=== PATIENT | female | born 1960 | race Caucasian/White ===

== ENCOUNTER 2016-11-04 12:15 | Emergency (ER) | payer OTHER ==
[~2016-11-04] VITALS: Ht 157.5 cm; Wt 86.2 kg
[~2016-11-04 12:15] MED LIST: ANT25 PO; ARM1 PO; CALC-354 PO; CHOL2000 PO; ONDA8TAB62 SL
[2016-11-04 12:22] VITALS: TEMP 36.4; Ht 157.5 cm; Wt 86.2 kg
[2016-11-04 12:29] VITALS: O2SAT 97
[2016-11-04] MEDS ORDERED: ONDANSETRON 4MG OD TAB PO STA (13:58)
[2016-11-04] MEDS ORDERED: SODIUM CHLORIDE 0.9% 1000ML 1,000 ML IV STA (14:13)
[2016-11-04] MEDS ORDERED: MECLIZINE HCL 25 MG TAB PO STA (14:24)
[2016-11-04] MEDS ORDERED: ONDANSETRON INJ 2 MG/ML 2 ML VIAL IV STA (14:24)
[2016-11-04 14:50] LABS: URINE APPEARANCE CLEAR (CLEAR); URINE BILIRUBIN NEG (NEG); URINE COLOR YELLOW; URINE EPITHELIAL CELL AUTO >30 /lpf (0-5); URINE NITRITE NEG (NEG); URINE PH 7.5 (4.5-7.5); URINE SPECIFIC GRAVITY 1.014 (1.000-1.030); UROBILINOGEN NEG (NEG)
[2016-11-04 14:52] LABS: MANUAL MICROSCOPIC REQUIRED? NO; REVIEW REQ? NO
[2016-11-04 15:38] LABS: BASO % 0.3 %; BASO ABS # 0.02 K/uL (0-0.2); COMPLETE YES; EOS % 3.8 %; IG% 0.8 %; LYMPH % 17.9 %; LYMPH ABS # 1.19 K/uL (1.2-3.4); MEAN CELL VOLUME 102.7 fL (80-100); MEAN CORPUSCULAR HEMOGLOBIN 35.7 pg (25-34); MEAN CORPUSCULAR HGB CONC 34.8 g/dl (32-36); MEAN PLATELET VOLUME 9.5 fL (7.4-10.4); MONO % 9.3 %; NEUT % 67.9 %; PLATELET COUNT 233 K/uL (130-400); RED BLOOD COUNT 4.48 M/uL (4.2-5.4); WHITE BLOOD COUNT 6.65 K/uL (4.8-10.8)
[2016-11-04 15:53] LABS: BUN/CREATININE RATIO 9.7 (10-20); CALCIUM 9.1 mg/dl (8.5-10.1); CREATININE 0.73 mg/dl (0.60-1.20); POTASSIUM 3.7 mmol/L (3.5-5.1)
[2016-11-04 16:04] LABS: THYROID STIMULATING HORMONE 18.9 uIu/ml (0.300-4.500)
[2016-11-04 16:18] VITALS: O2SAT 95
[2016-11-04] MEDS ORDERED: MECL1TAB42 PO (17:03)
[2016-11-04 17:08] VITALS: BP 138/93; PULSE 76
[2016-11-04] MEDS ORDERED: MECLIZINE HCL 25MG HOME PACK PO ONE (17:15)
--- NOTE | 2016-11-04 22:29 | EMERGENCY ROOM VISIT NOTE ---
History Report prepared by Tanna: Joshua Garcia Under the Supervision of: Dr. Tushar Armas M.D. First contact with patient: 14:09 Chief Complaint: ILLNESS Stated Complaint: FLOATY IN HEAD,SICK TO STOMACH History of Present Illness The patient is a 55 year old female who presents to the Emergency Room with complaints of constant dizziness and a "floaty" sensation starting this morning. The patient states that her discomfort/ dizziness is around an 8.5-9/ 10. The patient states that this morning she was sleeping and didn't feel well, so she got up to go to the bathroom, and she felt very dizzy like the room was spinning. The patient states that she has additionally been nauseous. The patient additionally complains of echoes in her ears, and she denies any recent cold symptoms. The patient states that she has recurring episodes of this, and it happens every couple of months. She states that she usually takes meclizine, and this helps however she currently does not have any. The patient states that she took some Zofran, and they made her feel a little bit better. The patient states that she has been having these episodes for the past three months. The patient states that she was additionally treated for breast cancer three years ago. She states that she has high hemoglobin levels, and she has a port, and they cannot find a vein. Pt denies LOC, headache, fevers, chills, diaphoresis, visual changes, neck pain, chest pain, breathing difficulties, vomiting, abdominal pain, back pain, melena, hematochezia, urinary symptoms, numbness, weakness, lymphadenopathy, rash, or other complaints. Source of History: patient Onset: this morning Position: other (global) Symptom Intensity: 8.5-9/10 Quality: other (dizziness) Timing: constant Associated Symptoms: + nausea Review of Systems See HPI for pertinent positives and negatives. A total of ten systems were reviewed and were otherwise negative. Past Medical & Surgical Medical Problems: (1) Breast cancer (2) Breast cancer (3) GI bleed (4) Hemochromatosis (5) Hemochromatosis (6) Hemorrhoid (7) Vertigo Family History FH: cancer Social History Smoking Status: Current Every Day Smoker Alcohol Use: occasionally Drug Use: none Marital Status: Housing Status: lives with family Occupation Status: unemployed Current/Historical Medications Scheduled Anastrozole (Anastrozole), 1 MG PO DAILY Calcium Carbonate-Cholecalcife (Caltrate 600+D), 2 TAB PO DAILY Cholecalciferol (Vitamin D3), 1 CAP PO DAILY Scheduled PRN Meclizine Hcl (Meclizine Hcl), 25 MG PO TID PRN for Dizziness Ondansetron Odt (Zofran Odt), 8 MG SL Q6H PRN for Nausea Allergies Coded Allergies: No Known Allergies (Unverified , 11/04/16) Physical Exam Vital Signs Date Time Temp Pulse Resp B/P Pulse Ox O2 Delivery O2 Flow Rate FiO2 11/04/16 17:08 76 18 138/93 11/04/16 17:04 68 11/04/16 16:18 66 16 155/85 95 Room Air 11/04/16 15:58 75 18 138/88 97 Room Air 11/04/16 14:20 71 20 128/82 96 80 135/86 78 152/91 11/04/16 14:03 68 20 132/80 95 Room Air 11/04/16 13:13 72 11/04/16 12:29 97 Room Air 11/04/16 12:22 36.4 79 18 164/94 97 Room Air Physical Exam GENERAL: Awake, alert, well appearing, no distress HENT: Mild cerumen impaction bilaterally Normocephalic, atraumatic. TM's normal. Oropharynx unremarkable. EYES: PERRL. EOMI. Normal conjunctiva. Sclera non-icteric. NECK: Supple. No nuchal rigidity. FROM. No JVD or bruit. RESPIRATORY: CTA CARDIAC: RRR. No murmur. ABDOMEN: Soft, non distended. No tenderness to palpation. No rebound or guarding. No masses. RECTAL: Deferred. MUSCULOSKELETAL: Unremarkable. No edema. No discoloration. Gross motor strength symmetric. NEURO: Cranial nerves 2-12 grossly intact. Normal sensorium. No sensory or motor deficits noted. Speech normal. No pronator drift. SKIN: No rash or jaundice noted. LYMPH: No adenopathy. Medical Decision & Procedures Laboratory Results 11/04/16 15:28 Red Blood Count 4.48, Mean Corpuscular Volume 102.7, Mean Corpuscular Hemoglobin 35.7, Mean Corpuscular Hemoglobin Concent 34.8, Mean Platelet Volume 9.5, Neutrophils (%) (Auto) 67.9, Lymphocytes (%) (Auto) 17.9, Monocytes (%) ( Auto) 9.3, Eosinophils (%) (Auto) 3.8, Basophils (%) (Auto) 0.3, Neutrophils # ( Auto) 4.52, Lymphocytes # (Auto) 1.19, Monocytes # (Auto) 0.62, Eosinophils # ( Auto) 0.25, Basophils # (Auto) 0.02 11/04/16 15:28 Test 11/04/16 14:00 11/04/16 15:28 Urine Color YELLOW Urine Appearance CLEAR (CLEAR) Urine pH 7.5 (4.5-7.5) Urine Specific [place] 1.014 (1.000-1.030) Urine Protein NEG (NEG) Urine Glucose (UA) NEG (NEG) Urine Ketones NEG (NEG) Urine Occult Blood NEG (NEG) Urine Nitrite NEG (NEG) Urine Bilirubin NEG (NEG) Urine Urobilinogen NEG (NEG) Urine Leukocyte Esterase TRACE (NEG) Urine WBC (Auto) 1-5 /hpf (0-5) Urine RBC (Auto) 0-4 /hpf (0-4) Urine Hyaline Casts (Auto) 1-5 /lpf (0-5) Urine Epithelial Cells (Auto) >30 /lpf (0-5) Urine Bacteria (Auto) 1+ (NEG) White Blood Count 6.65 K/uL (4.8-10.8) Red Blood Count 4.48 M/uL (4.2-5.4) Hemoglobin 16.0 g/dL (12.0-16.0) Hematocrit 46.0 % (37-47) Mean Corpuscular Volume 102.7 fL (80-100) Mean Corpuscular Hemoglobin 35.7 pg (25-34) Mean Corpuscular Hemoglobin Concent 34.8 g/dl (32-36) Platelet Count 233 K/uL (130-400) Mean Platelet Volume 9.5 fL (7.4-10.4) Neutrophils (%) (Auto) 67.9 % Lymphocytes (%) (Auto) 17.9 % Monocytes (%) (Auto) 9.3 % Eosinophils (%) (Auto) 3.8 % Basophils (%) (Auto) 0.3 % Neutrophils # (Auto) 4.52 K/uL (1.4-6.5) Lymphocytes # (Auto) 1.19 K/uL (1.2-3.4) Monocytes # (Auto) 0.62 K/uL (0.11-0.59) Eosinophils # (Auto) 0.25 K/uL (0-0.5) Basophils # (Auto) 0.02 K/uL (0-0.2) RDW Standard Deviation 51.9 fL (36.4-46.3) RDW Coefficient of Variation 13.9 % (11.5-14.5) Immature Granulocyte % (Auto) 0.8 % Immature Granulocyte # (Auto) 0.05 K/uL (0.00-0.02) Anion Gap 10.0 mmol/L (3-11) Est Creatinine Clear Calc Drug Dose 86.6 ml/min Estimated GFR () 106.0 Estimated GFR (Non- 91.4 BUN/Creatinine Ratio 9.7 (10-20) Calcium Level 9.1 mg/dl (8.5-10.1) Magnesium Level 2.0 mg/dl (1.8-2.4) Total Bilirubin 0.6 mg/dl (0.2-1) Direct Bilirubin 0.1 mg/dl (0-0.2) Aspartate Amino Transf (AST/SGOT) 27 U/L (15-37) Alanine Aminotransferase (ALT/SGPT) 27 U/L (12-78) Alkaline Phosphatase 75 U/L (45-117) Total Protein 6.5 gm/dl (6.4-8.2) Albumin 3.3 gm/dl (3.4-5.0) Lipase 138 U/L (73-393) Thyroid Stimulating Hormone (TSH) 18.900 uIu/ml (0.300-4.500) Free Thyroxine 0.71 ng/dl (0.80-1.60) Laboratory results reviewed by me Medications Administered Medications (Trade) Dose Ordered Sig/Loy Route Start Time Stop Time Status Last Admin Dose Admin Ondansetron HCl 4 mg 4 mg NOW STAT PO 11/04/16 13:58 11/04/16 13:59 DC 11/04/16 13:58 4 MG Sodium Chloride (Nss 1000ml) 1,000 ml @ 999 mls/hr Q1H1M STAT IV 11/04/16 14:13 11/04/16 15:13 DC 11/04/16 14:13 999 MLS/HR Meclizine HCl (Antivert Tab) 25 mg NOW STAT PO 11/04/16 14:24 11/04/16 14:28 DC 11/04/16 14:24 25 MG Meclizine HCl (Antivert 25MG Home Pack) 1 homepack UD ONCE PO 11/04/16 17:15 11/04/16 17:16 DC 11/04/16 17:10 1 HOMEPACK ECG Indication: other (dizziness) Rate (beats per minute): 70 Rhythm: normal sinus Findings: no acute ischemic change, no ectopy ED Course 1358: Zofran Odt 4mg PO 1409: The patient was evaluated in room B12. A complete history and physical exam was performed. 1413: Sodium Chloride 1000 ml @ 999 mls/hr IV 1424: Antivert Tab 25mg PO, Zofran Inj 4mg IV 1658: I reevaluated the patient. Discussed results and discharge instructions: She verbalized understanding and agreement. The patient is ready for discharge. 1715: Antivert 25mg 1 homepack PO Medical Decision Prior records/ancillary studies reviewed. Triage Nursing notes reviewed and agree them. The patient's history was concerning for dizziness. Differential diagnosis: Etiologies such as benign positional vertigo, tumor, infection, hypoglycemia, electrolyte abnormalities, cardiac sources, intracerebral event, toxicologic, neurologic, as well as others were entertained. Physical examination: As above. No pathologic nystagmus. ER treatment provided: IV hydration over one hour Zofran Oral meclizine On reassessment the patient felt much better and desired discharge. Diagnostics interpretation by me: ECG: Normal sinus rhythm without ischemic change or evidence of dysrhythmia. The labs revealed a normal CBC and chemistry panel. TSH was elevated. Imaging deferred. It appears the patient had an episode of benign -positional vertigo. She has a long history of this problem. She was out of her meclizine at home. I did discuss the use of a benzodiazepine but the patient declined as she is very sensitive to medications. The patient had an elevated TSH. This was found at the time discharge. I did add on a T3 and T4. The patient was informed of this thyroid abnormality and that she would need close follow-up. Her T3 is unremarkable but T4 is just under the normal limit. This will need further evaluation as an outpatient and the patient was made aware prior to discharge. By The evaluation outlined above emergent etiologies such as infection, hypoglycemia, electrolyte abnormalities, cardiac sources, intracerebral event, toxicologic, neurologic,as well as others were deemed relatively unlikely. The patient and family were informed about the findings as listed above. All questions were answered and they were pleased with the treatment. Return instructions were outlined and the patient was discharged in stable condition. Outpatient prescription management: Meclizine Referral: The patient was referred back to her primary care physician for follow-up in 2 to 3 days for a recheck of the current condition. The chart was completed utilizing [employer] Speech voice recognition software. Grammatical errors, random word insertions, pronoun errors, and incomplete sentences are an occasional consequence of this system due to software limitations, ambient noise, and hardware issues. Any formal questions or concerns about the content, text, or information contained within the body of this dictation should be directly addressed to the physician for clarification. Impression Primary Impression: Dizziness Additional Impression: possible hypothyroidism Scribe Attestation The scribe's documentation has been prepared under my direction and personally reviewed by me in its entirety. I confirm that the note above accurately reflects all work, treatment, procedures, and medical decision making performed by me. Departure Information Dispostion Home / Self-Care Prescriptions Meclizine Hcl (MECLIZINE HCL) 25 Mg Tab 25 MG PO TID Y for Dizziness, #21 TAB Prov: Tushar Armas MD 11/04/16 Referrals Veronica Mack (PCP) Forms HOME CARE DOCUMENTATION FORM, IMPORTANT VISIT INFORMATION, WORK / SCHOOL INSTRUCTIONS Patient Instructions A Signature Page, My [facility] Additional Instructions DIZZINESS INSTRUCTIONS: Meclizine 25mg: Take 1 pill every 8 hours as needed for dizziness or vertigo. Avoid alcohol, operating machinery or dangerous equipment, working on ladders or roofs, DRIVING, or situations where being under the influence may be dangerous Zofran(odansetron) tablets 4mg: Take one and allow it to dissolve in your mouth every four to six hours as needed for nausea or vomiting. Rest and drink plenty of fluids as tolerated. Continue current medications. If you have nausea or vomiting: Once your stomach is settled start with a clear liquid diet (jello, soup broth, etc.) and then advance as tolerated. You should avoid full, heavy meals for about 24 hrs from the time your symptoms resolved. Return to the ER immediately for worsening or persistent dizziness, vomiting, headache, fevers, chest pains, difficulty breathing, black or bloody stools, slurred speech, numbness, weakness, visual changes, worsening of your condition , or as needed. Follow up with your primary physician in 2-3 days for a recheck of your current condition. Thyroid studies are pending and will need to be followed up this week. Notify your PCP. Problem Qualifiers
[2017-05-25] MEDS ORDERED: ANT25 PO (13:43)
== END 2016-11-04 17:18 | disposition home or self-care (01) ==
LOC: C.EDB 12:17
DX: R42 Dizziness and giddiness (principal); Z85.3 Personal history of malignant neoplasm of breast; F17.200 Nicotine dependence, unspecified, uncomplicated

== ENCOUNTER 2017-04-20 14:06 | Emergency (ER) | payer OTHER ==
[~2017-04-20] VITALS: Ht 160 cm; Wt 78.0 kg
[~2017-04-20 14:06] MED LIST changes: -ANT25 PO; +MECL1TAB42 PO
[2017-04-20 14:12] VITALS: TEMP 36.5; Ht 160 cm; Wt 78.0 kg
[2017-04-20] MEDS ORDERED: SODIUM CHLORIDE 0.9% 1000ML 1,000 ML IV ONE (14:30)
[2017-04-20 14:56] VITALS: O2SAT 96
[2017-04-20 15:10] LABS: URINE APPEARANCE CLEAR (CLEAR); URINE BILIRUBIN NEG (NEG); URINE COLOR YELLOW; URINE NITRITE NEG (NEG); URINE SPECIFIC GRAVITY 1.009 (1.000-1.030); UROBILINOGEN NEG (NEG); ZZUR CULT IF INDIC CLEAN CATCH NO
[2017-04-20 15:12] LABS: MANUAL MICROSCOPIC REQUIRED? NO; REVIEW REQ? NO
[2017-04-20 16:04] LABS: ALB/GLOB RATIO 0.9 (0.9-2); BUN/CREATININE RATIO 10.8 (10-20); CALCIUM 9.4 mg/dl (8.5-10.1); CREATININE 0.85 mg/dl (0.60-1.20); POTASSIUM 3.8 mmol/L (3.5-5.1)
[2017-04-20 16:09] LABS: BASO % 0.3 %; BASO ABS # 0.03 K/uL (0-0.2); COMPLETE YES; EOS % 3.2 %; HEMATOCRIT 48.3 % (37-47); IG% 0.5 %; LYMPH % 16.5 %; LYMPH ABS # 1.43 K/uL (1.2-3.4); MEAN CELL VOLUME 100.4 fL (80-100); MEAN CORPUSCULAR HEMOGLOBIN 33.9 pg (25-34); MEAN CORPUSCULAR HGB CONC 33.7 g/dl (32-36); MEAN PLATELET VOLUME 9.8 fL (7.4-10.4); MONO % 8.6 %; NEUT % 70.9 %; PLATELET COUNT 278 K/uL (130-400); RED BLOOD COUNT 4.81 M/uL (4.2-5.4); WHITE BLOOD COUNT 8.65 K/uL (4.8-10.8)
[2017-04-20] MEDS ORDERED: OPTIRAY 320 IV PRN (17:00)
--- NOTE | 2017-04-20 18:30 | DIAGNOSTIC IMAGING REPORT ---
ABDOMEN AND PELVIS CT WITH IV AND ORAL CONTRAST CT DOSE: 815.54 mGy.cm HISTORY: Pain Low abd pain. Hx breast ca. Dysuria sx with normal UA TECHNIQUE: Multiaxial CT images of the abdomen and pelvis were performed following the use of intravenous and oral contrast. COMPARISON STUDY: None. FINDINGS: Lung bases are clear. Liver spleen and pancreas are unremarkable. Bowel pattern is nonobstructive. There are scattered colonic diverticuli with no evidence of diverticulitis. Kidneys enhance uniformly. There is neck to renal pelvis on the right unchanged from the prior study. Slight thickening of the mid sigmoid unchanged in the prior study. IMPRESSION: Chronic change. No acute process. Electronically signed by: Michael Juan M.D. 04/20/2017 6:28 PM Dictated Date/Time: 04/20/2017 6:24 PM
[2017-04-20] MEDS ORDERED: CIPROFLOXACIN 500 MG TAB PO STA (18:48)
[2017-04-20] MEDS ORDERED: CIPR-255 PO (18:50)
[2017-04-20 19:17] VITALS: BP 143/76; PULSE 85; O2SAT 97
--- NOTE | 2017-04-20 20:01 | EMERGENCY ROOM VISIT NOTE ---
History First contact with patient: 14:17 Chief Complaint: HYPERTENSION Stated Complaint: HYPERTENSION, URINARY SYMPTOMS History of Present Illness The patient is a 56 year old female who presents to the Emergency Room with complaints of urinary frequency and dysuria for the past 3 or 4 days. The patient has a history of hemachromatosis and has regular blood draws here at the hospital for this. She was to have a regular blood draw today, however upon presentation the patient was found to be hypertensive at roughly 170/100. She had indicated to the staff that she was not feeling well for the past several days, and she was brought to the emergency department for further management. The patient has not had reports of fever or chills. No chest pain , chest tightness, or shortness of breath. She does complain of intermittent very low abdominal/pelvic pain that is midline. She is not having any vaginal irritation, drainage, or discharge. She has a history of breast cancer 4 years ago that has been treated with chemotherapy and radiation. She is not currently undergoing any treatment for this. The patient does not have additional complaints and rates her overall discomfort a 6/10. Review of Systems More than 10 systems were reviewed and otherwise negative with the exception of history of present illness. Past Medical/Surgical History Medical Problems: (1) Breast cancer (2) Breast cancer (3) GI bleed (4) Hemochromatosis (5) Hemochromatosis (6) Hemorrhoid (7) Vertigo Family History FH: cancer Social History Smoking Status: Current Every Day Smoker Alcohol Use: occasionally Drug Use: none Marital Status: Housing Status: lives with family Occupation Status: unemployed Current/Historical Medications Scheduled Anastrozole (Anastrozole), 1 MG PO DAILY Calcium Carbonate-Cholecalcife (Caltrate 600+D), 2 TAB PO DAILY Ciprofloxacin Hcl (Cipro), 500 MG PO BID Scheduled PRN Meclizine Hcl (Meclizine Hcl), 25 MG PO TID PRN for Dizziness Ondansetron Odt (Zofran Odt), 8 MG SL Q6H PRN for Nausea Allergies Coded Allergies: No Known Allergies (Unverified , 04/20/17) Physical Exam Vital Signs Date Time Temp Pulse Resp B/P (MAP) Pulse Ox O2 Delivery O2 Flow Rate FiO2 04/20/17 18:10 89 20 145/79 97 Room Air 04/20/17 16:18 76 18 150/89 99 Room Air 04/20/17 15:11 77 04/20/17 14:56 96 Room Air 04/20/17 14:56 78 18 156/98 96 Room Air 04/20/17 14:12 36.5 18 160/102 Room Air Physical Exam VITALS: Vitals are noted on the nurse's note and reviewed by myself. Vital signs with elevated blood pressure. GENERAL: Well-developed, well-nourished, white female, who is in no acute distress and resting comfortably. Patient is cooperative with the examination. HEAD: Normocephalic atraumatic. HEART: Regular rate and rhythm without murmurs gallops or rubs. LUNGS: Clear to auscultation bilaterally without wheezes, rales or rhonchi. No retractions or accessory muscle use. ABDOMEN: Positive normal bowel sounds x 4. Soft with suprapubic tenderness. No CVA tenderness. No rebound or guarding. MUSCULOSKELETAL: No muscle atrophy, erythema, or edema noted. Full range of motion without joint tenderness in all extremities. Medical Decision & Procedures ER Provider Diagnostic Interpretation: ABDOMEN AND PELVIS CT WITH IV AND ORAL CONTRAST CT DOSE: 815.54 mGy.cm HISTORY: Pain Low abd pain. Hx breast ca. Dysuria sx with normal UA TECHNIQUE: Multiaxial CT images of the abdomen and pelvis were performed following the use of intravenous and oral contrast. COMPARISON STUDY: None. FINDINGS: Lung bases are clear. Liver spleen and pancreas are unremarkable. Bowel pattern is nonobstructive. There are scattered colonic diverticuli with no evidence of diverticulitis. Kidneys enhance uniformly. There is neck to renal pelvis on the right unchanged from the prior study. Slight thickening of the mid sigmoid unchanged in the prior study. IMPRESSION: Chronic change. No acute process. Laboratory Results 04/20/17 15:49 Red Blood Count 4.81, Mean Corpuscular Volume 100.4, Mean Corpuscular Hemoglobin 33.9, Mean Corpuscular Hemoglobin Concent 33.7, Mean Platelet Volume 9.8, Neutrophils (%) (Auto) 70.9, Lymphocytes (%) (Auto) 16.5, Monocytes (%) ( Auto) 8.6, Eosinophils (%) (Auto) 3.2, Basophils (%) (Auto) 0.3, Neutrophils # ( Auto) 6.13, Lymphocytes # (Auto) 1.43, Monocytes # (Auto) 0.74, Eosinophils # ( Auto) 0.28, Basophils # (Auto) 0.03 04/20/17 15:36 Test 04/20/17 14:51 04/20/17 15:36 04/20/17 15:49 Urine Color YELLOW Urine Appearance CLEAR (CLEAR) Urine pH 7.0 (4.5-7.5) Urine Specific [place] 1.009 (1.000-1.030) Urine Protein NEG (NEG) Urine Glucose (UA) NEG (NEG) Urine Ketones NEG (NEG) Urine Occult Blood TRACE (NEG) Urine Nitrite NEG (NEG) Urine Bilirubin NEG (NEG) Urine Urobilinogen NEG (NEG) Urine Leukocyte Esterase NEG (NEG) Urine WBC (Auto) 1-5 /hpf (0-5) Urine RBC (Auto) 0-4 /hpf (0-4) Urine Hyaline Casts (Auto) 0 /lpf (0-5) Urine Epithelial Cells (Auto) 5-10 /lpf (0-5) Urine Bacteria (Auto) NEG (NEG) Anion Gap 7.0 mmol/L (3-11) Est Creatinine Clear Calc Drug Dose 71.3 ml/min Estimated GFR () 87.5 Estimated GFR (Non- 75.5 BUN/Creatinine Ratio 10.8 (10-20) Calcium Level 9.4 mg/dl (8.5-10.1) Total Bilirubin 0.6 mg/dl (0.2-1) Aspartate Amino Transf (AST/SGOT) 21 U/L (15-37) Alanine Aminotransferase (ALT/SGPT) 29 U/L (12-78) Alkaline Phosphatase 84 U/L (45-117) Troponin I < 0.015 ng/ml (0-0.045) Total Protein 7.3 gm/dl (6.4-8.2) Albumin 3.5 gm/dl (3.4-5.0) Globulin 3.8 gm/dl (2.5-4.0) Albumin/Globulin Ratio 0.9 (0.9-2) White Blood Count 8.65 K/uL (4.8-10.8) Red Blood Count 4.81 M/uL (4.2-5.4) Hemoglobin 16.3 g/dL (12.0-16.0) Hematocrit 48.3 % (37-47) Mean Corpuscular Volume 100.4 fL (80-100) Mean Corpuscular Hemoglobin 33.9 pg (25-34) Mean Corpuscular Hemoglobin Concent 33.7 g/dl (32-36) Platelet Count 278 K/uL (130-400) Mean Platelet Volume 9.8 fL (7.4-10.4) Neutrophils (%) (Auto) 70.9 % Lymphocytes (%) (Auto) 16.5 % Monocytes (%) (Auto) 8.6 % Eosinophils (%) (Auto) 3.2 % Basophils (%) (Auto) 0.3 % Neutrophils # (Auto) 6.13 K/uL (1.4-6.5) Lymphocytes # (Auto) 1.43 K/uL (1.2-3.4) Monocytes # (Auto) 0.74 K/uL (0.11-0.59) Eosinophils # (Auto) 0.28 K/uL (0-0.5) Basophils # (Auto) 0.03 K/uL (0-0.2) RDW Standard Deviation 48.7 fL (36.4-46.3) RDW Coefficient of Variation 13.2 % (11.5-14.5) Immature Granulocyte % (Auto) 0.5 % Immature Granulocyte # (Auto) 0.04 K/uL (0.00-0.02) Medications Administered Medications (Trade) Dose Ordered Sig/Loy Route Start Time Stop Time Status Last Admin Dose Admin Sodium Chloride 1,000 ml @ 999 mls/hr Q1H1M ONCE IV 04/20/17 14:30 04/20/17 15:30 DC 04/20/17 14:30 999 MLS/HR ED Course Physical exam and history were performed. Nursing notes and EMR were reviewed. Patient appears to have dysuria symptoms with very low abdominal pain for the past few days. She was also found to be hypertensive earlier at the outpatient lab. On exam the patient does not appear toxic. IV access was established and labs were obtained. Patient was hydrated and medicated as above. She was able to give a urine sample, which did not show obvious urinary tract infection symptoms. Because she does have discomfort in the lower abdomen and history of cancer I did elect to perform a CT scan with IV and oral contrast. The patient's blood work is as above and was reviewed. She does not have a significantly elevated white blood cell count, gross anemia, bandemia, or significant electrolyte imbalance. Her CT scan does not show evidence of acute findings. Overall the patient remained in stable condition throughout her emergency department stay. Her blood pressure improved, but did not completely return to a more normal level. She will need to follow-up with her primary care physician for this. The patient will be given a course of Cipro as clinically she is having UTI symptoms, and her culture is pending. I did recommend the patient have close follow-up by her primary care physician. She was otherwise invited back to the ER with any new, worsening, or concerning symptoms. The chart was completed utilizing [employer] Speech Voice Recognition Software. Grammatical errors, random word insertions, pronoun errors, and incomplete sentences are an occasional consequence of this system due to software limitations, ambient noise, and hardware issues. Any formal questions or concerns about the content, text, or information contained within the body of this dictation should be directly addressed to the provider for clarification. . Medical Decision Differential diagnosis: Etiologies such as appendicitis, diverticulitis, PUD, biliary pathology, UTI, pancreatitis, obstruction, mesenteric ischemia, aortic pathology, infections, inflammatory bowel disease, renal colic, as well as others were entertained. Impression Primary Impression: Symptoms involving urinary system Additional Impressions: Elevated blood pressure reading Suprapubic abdominal pain Departure Information Dispostion Home / Self-Care Condition GOOD Prescriptions Ciprofloxacin Hcl (CIPRO) 500 Mg Tab 500 MG PO BID for 10 Days, #20 TAB Prov: John Shaver PA-C 04/20/17 Forms HOME CARE DOCUMENTATION FORM, IMPORTANT VISIT INFORMATION Patient Instructions My [facility] Additional Instructions You were seen and evaluated today on an emergency basis only. This is not a substitute for, or an effort to provide, complete comprehensive medical care. It is not possible to recognize and treat all injuries or illnesses in a single emergency department visit. For this reason it is recommended that you followup with your primary care physician next week for ongoing care and evaluation. Ciprofloxacin(Cipro) 500mg: Take one pill twice daily for 10 days for your infection. All antibiotics can cause diarrhea. If this occurs and you feel worse or it does not resolve in 1-2 days follow up with your doctor or return to the Emergency Department as this could be signs of serious underlying problems. If you experience any pain in your tendons or any tendon injury return to the ER for re-evaluation. Any medication can cause an allergic reaction, stop the pills immediately and return to the ER for rash, hives, breathing difficulties, or swelling. You are welcome to return to the emergency department anytime with new, worsening, or concerning symptoms. Problem Qualifiers
[2017-05-25] MEDS ORDERED: ANT25 PO (13:43)
== END 2017-04-20 19:18 | disposition home or self-care (01) ==
LOC: C.EDB 14:07 → C.EDC 19:18
DX: R30.0 Dysuria (principal); I10 Essential (primary) hypertension; R10.30 Lower abdominal pain, unspecified; Z85.3 Personal history of malignant neoplasm of breast

== ENCOUNTER → 2017-08-04 | Outpatient (CLI) | payer OTHER ==
[~2017-08-04] MED LIST changes: +ANT25 PO; -CHOL2000 PO; -MECL1TAB42 PO
[2017-08-04 14:23] VITALS: BP 139/86; PULSE 80; TEMP 36.6; O2SAT 98
--- NOTE | 2017-08-04 16:56 | Radiation Oncology Follow-Up ---
Radiation Oncology Follow-Up Date of Visit Aug 04, 2017. Reason For Visit Annual follow-up Radiation Completion Date 06/13/14 Diagnosis (1) Breast cancer Status: Resolved Onset Date: 06/28/2013 Histology Subtype: adenocarcinoma Stage: lll Permanent Comment: Self detected right breast mass Status post ultrasound and mammogram 06/16/2013 Status post right breast biopsy and punch biopsy of the skin 06/28/2013 revealing adenocarcinoma Neoadjuvant chemotherapy 4 cycles of Adriamycin and Cytoxan followed by 4 cycles of Taxol dose dense therapy Status post bilateral mastectomies and right axillary dissection Stage ypT4 ypN2a M0 Status post completion of radiation therapy 06/13/2014 received 6120 cGy Last Edited By: Jana Schmidt on Jan 29, 2016 16:18 Interim History She's been doing well over this past year. She denies any changes of the right chest wall. She noted no masses or tenderness and no change of the axilla. She 's had no swelling of her arm. Today she had a phlebotomy for her polycythemia. She continues on Arimidex. She denies side effects. She does have a port. We reviewed the frequency in need of flushing of the port. They have been using her arm for the phlebotomies. She is going to check on her schedule to make sure she has a port flush scheduled. She had some issues with vertigo over this past year. These resolved and have not recurred. Allergies Coded Allergies: No Known Allergies (Unverified , 06/15/17) Home Medications Scheduled Anastrozole (Anastrozole), 1 MG PO DAILY Calcium Carbonate-Cholecalcife (Caltrate 600+D), 2 TAB PO DAILY Scheduled PRN Meclizine HCl (Meclizine HCl), 1 TAB PO DAILY PRN for Dizziness or Vertigo Ondansetron Odt (Zofran Odt), 8 MG SL Q6H PRN for Nausea Review of Systems Gastrointestinal: Symptoms: Nausea GI Comments: Nausea associated with episodes of vertigo which she's known to have; Oral: Symptoms: No Problems Respiratory: Symptoms: WNL Urinary: Symptoms: WNL Skin: Symptoms: No Problems Breast: Right Upper Arm Measurement: 35.0 Right Mid Arm Measurement: 26.0 Right Wrist Measurement: 18.5 Left Upper Arm Measurement: 36.5 Left Mid Arm Measurement: 27.5 Left Wrist Measurement: 17.8 Arm Dominence: Left Physical Exam Vital Signs Date Time Temp Pulse Resp B/P (MAP) Pulse Ox O2 Delivery O2 Flow Rate FiO2 08/04/17 14:23 36.6 80 16 139/86 98 Fatigue: None General Appearance: no apparent distress Eyes: normal inspection, EOMI ENT: normal ENT inspection, hearing grossly normal, TMs normal (mild cerumen.) Neck: no adenopathy, thyroid normal Respiratory/Chest: lungs clear, no respiratory distress, no accessory muscle use Breast: Status post mastectomies. The chest wall reveals no masses or tenderness no change in the axilla. She has an area of fibrous change in the area of the right pectoralis minor. This is improved compared to last year. Using the Vilas score cosmesis she has a good outcome. She continues to have some there is slight hyperpigmentation of the right anterior chest wall. Left chest wall showed no masses or tenderness no axillary adenopathy. Cardiovascular: regular rate, rhythm, no gallop, no murmur Abdomen: non tender, soft Extremities: no pedal edema Neurologic/Psychiatric: no motor/sensory deficits, alert, normal mood/affect Skin: warm/dry Laboratory Studies Test 05/18/17 12:01 06/15/17 14:26 07/13/17 13:53 08/04/17 13:01 White Blood Count 7.56 K/uL (4.8-10.8) Red Blood Count 4.88 M/uL (4.2-5.4) Hemoglobin 16.1 g/dL (12.0-16.0) 15.7 g/dL (12.0-16.0) 15.3 g/dL (12.0-16.0) Hematocrit 49.0 % (37-47) 46.2 % (37-47) 45.1 % (37-47) Mean Corpuscular Volume 100.4 fL (80-100) Mean Corpuscular Hemoglobin 33.0 pg (25-34) Mean Corpuscular Hemoglobin Concent 32.9 g/dl (32-36) Platelet Count 233 K/uL (130-400) Mean Platelet Volume 10.4 fL (7.4-10.4) Neutrophils (%) (Auto) 66.0 % Lymphocytes (%) (Auto) 18.5 % Monocytes (%) (Auto) 9.5 % Eosinophils (%) (Auto) 4.0 % Basophils (%) (Auto) 0.5 % Neutrophils # (Auto) 4.99 K/uL (1.4-6.5) Lymphocytes # (Auto) 1.40 K/uL (1.2-3.4) Monocytes # (Auto) 0.72 K/uL (0.11-0.59) Eosinophils # (Auto) 0.30 K/uL (0-0.5) Basophils # (Auto) 0.04 K/uL (0-0.2) RDW Standard Deviation 49.1 fL (36.4-46.3) RDW Coefficient of Variation 13.3 % (11.5-14.5) Immature Granulocyte % (Auto) 1.5 % Immature Granulocyte # (Auto) 0.11 K/uL (0.00-0.02) Sodium Level 138 mmol/L (136-145) Potassium Level 3.9 mmol/L (3.5-5.1) Chloride Level 105 mmol/L (98-107) Carbon Dioxide Level 27 mmol/L (21-32) Anion Gap 6.0 mmol/L (3-11) Blood Urea Nitrogen 10 mg/dl (7-18) Creatinine 1.00 mg/dl (0.60-1.20) Est Creatinine Clear Calc Drug Dose 61.0 ml/min Estimated GFR () 71.9 Estimated GFR (Non- 62.1 BUN/Creatinine Ratio 10.4 (10-20) Random Glucose 107 mg/dl (70-99) Calcium Level 9.2 mg/dl (8.5-10.1) Total Bilirubin 0.4 mg/dl (0.2-1) Aspartate Amino Transferase (AST) 19 U/L (15-37) Alanine Aminotransferase (ALT) 28 U/L (12-78) Alkaline Phosphatase 89 U/L (45-117) Total Protein 6.9 gm/dl (6.4-8.2) Albumin 3.3 gm/dl (3.4-5.0) Globulin 3.6 gm/dl (2.5-4.0) Albumin/Globulin Ratio 0.9 (0.9-2) Chemistry Specimen Hemolysis Assessment & Plan Plan: Continue regular follow-up with medical oncology and her primary care physician. She continues on Arimidex. We asked her to return to our office in 1 year. She may, she has any questions or concerns in the interim. Today we once again discussed smoke cessation. She was given information about the 1 800 quit line. I offered to refer her to a smoking cessation program through the hospital. She declined to be referred. Total Time In Follow-Up I spent 20 minutes speaking to the patient performing examination. I spent 15 minutes reviewing information in completing this note. Copy To [place] M.D.; Eben Subramanian D.O.; Nikko Tam M.D. Problem Qualifiers (1) Breast cancer: Breast location: central portion of breast Estrogen receptor status: positive Patient sex: female Laterality: right Qualified Codes: C50.111 - Malignant neoplasm of central portion of right female breast; Z17.0 - Estrogen receptor positive status [ER+]
== END | disposition home or self-care (01) ==
LOC: C.ONC 12:27
PROVIDERS: ATTEND Physician Assistant Medical
DX: Z08 Encounter for follow-up examination after completed treatment for malignant neoplasm (principal); Z92.3 Personal history of irradiation; Z85.3 Personal history of malignant neoplasm of breast

== ENCOUNTER 2021-05-07 15:28 | Inpatient (IN) ==
--- NOTE | 2021-05-07 17:01 | Emergency Department Note ---
Impression & Plan Elevated bilirubin, Metastatic breast cancer, Transaminitis, Leukocytosis ED Provider Note NAME: LUCA TRIVEDI AGE: 60 SEX: F : 1960 ARRIVES VIA: Walk-In INFORMANT: Patient ED PROVIDER(S): Paramjit Trujillo DO CHIEF COMPLAINT: elevated lfts and bili HPI: Patient is a 60-year-old female with a past medical history of metastatic breast cancer that presents to the ER for increased elevation in LFTs and bilirubin. Patient denies any new headaches or change in vision. No chest pain or shortness of breath. No nausea, vomiting or diarrhea. She does have new lower abdominal pain which has been present for quite some time. She describes it as a crampy pain. Generally goes away with Tylenol. 0 out of 10 pain currently. She follow-up with her PCP and was referred in after blood work performed earlier today which showed an elevation in bilirubin and LFTs. ROS: See above HPI for pertinent positives & negatives. A total of 10 systems reviewed and were otherwise negative. PAST MEDICAL HISTORY:See Below PAST SURGICAL HISTORY:See Below FAMILY HISTORY:See Below SOCIAL HISTORY:See Below HOME MEDICATIONS:See Below ALLERGIES:See Below VITALS:See Below PHYSICAL EXAMINATION: GENERAL: Sitting up in bed, alert, well appearing, well nourished, no distress, non-toxic EYE EXAM: Scleral icterus OROPHARYNX: no exudate, no erythema, lips, buccal mucosa, and tongue normal and mucous membranes are moist NECK: supple, no nuchal rigidity, no adenopathy, non-tender LUNGS: Clear to auscultation. Normal chest wall mechanics HEART: no murmurs, S1 normal and S2 normal ABDOMEN: abdomen soft, non-tender, normo-active bowel sounds, no masses, no rebound or guarding. BACK: Back is symmetrical on inspection and there is no deformity, no midline tenderness, no CVA tenderness. SKIN: no rashes and no bruising UPPER EXTREMITIES: upper extremities are grossly normal. LOWER EXTREMITIES: No pitting edema. NEURO EXAM: Normal sensorium, cranial nerves II-XII grossly intact, normal speech, no gross weakness of arms, no gross weakness of legs. MEDICAL DECISION MAKING: Patient is a 60-year-old female who presents the ER for abnormal blood work. IV was established with obtained. Labs show mild leukocytosis of 13,000. No significant anemia. BMP with mild hypokalemia 3.4. Chloride slightly elevated at 108. T bili elevated at 8.8. AST elevated 2-3. ALT was normal. Alk phos at 574. Lipase was normal. CT abdomen pelvis shows no gross obstruction process in the CBD. Multiple lesions in the liver. Discussed with gastr oenterology who recommended antibiotics and admission with medicine due to the tachycardia, white count and elevated bilirubin. Discussed with Dr. Pool for further evaluation. Triage Nursing notes reviewed. Limited review of prior medical records performed Vital Signs: reviewed and remarkable for no significant abnormalities Differential diagnosis: Differential diagnoses includes but is not limited to gastritis, peptic ulcer disease, GERD, gallbladder disease, pancreatitis, small bowel obstruction, acute coronary syndrome, pericarditis, ischemic bowel, irritable bowel disease, irritable bowel syndrome, appendicitis, diverticulitis, malignancy, hernia, urinary tract infection, torsion, perforation, trauma, infectious. ER treatment provided: See below Diagnostics interpreted by me: Cardiac Monitoring: An order was placed for continuous cardiac monitoring. The monitor shows a rate of 82 with sinus rhythm. Laboratory studies: As stated above and show below. Imaging studies: CT abdomen pelvis as discussed above Consultation(s): Discussed with Dr. Burton as stated above Discussed with the hospitalist as stated above Critical Care: None Past Med/Surg History Medical History (Updated 05/07/21 @ 20:21 by Paramjit Trujillo DO) Abdominal pain Breast carcinoma Central venous catheter in place Dizziness GI bleed Hemorrhoids History of hemochromatosis Liver metastasis Nausea Orthostatic hypotension Vertigo Surgical History History of mastectomy, total Family History (Updated 05/02/21 @ 08:25 by Avis Rodriguez, VALORIE) Mother , 46yo Myocardial infarction Father , in his 50s Accident Brother Accident Brother No problems noted. Brother No problems noted. Brother No problems noted. Brother No problems noted. Brother No problems noted. Brother No problems noted. Sister No problems noted. Sister No problems noted. Sister Crohn's disease Son No problems noted. Daughter No problems noted. 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 Beliefs That Will Affect Care: None marital status: Current Living Situation: Family current occupational status: previously employed Feels Safe at Home: Yes caffeine: No during the past year weight has: remained stable Allergies Allergies Allergy/AdvReac Type Severity Reaction Status Date / Time No Known Allergies Allergy Verified 05/07/21 17:52 Home Meds Home Medications Medication Instructions Recorded Confirmed ondansetron HCl 8 mg tablet 8 mg PO Q8 PRN 09/16/19 05/07/21 (Zofran) levothyroxine 100 mcg capsule 100 mcg PO .QOD cap 05/02/21 05/07/21 levothyroxine 75 mcg capsule 75 mcg PO .QOD cap 05/02/21 05/07/21 Results & Data (ED) Vital Signs Vital Signs - 24 hr 05/07/21 15:34 05/07/21 17:15 05/07/21 18:43 Temperature 36.4 C L Temperature Source Temporal Artery Scan Pulse Rate 113 H 96 H 91 H Pulse Rate [Apical] 100 H Pulse Rate from SpO2 Sensor 96 H 92 H Pulse Rhythm Respiratory Rate 18 23 19 Blood Pressure 136/82 140/93 123/62 Blood Pressure [Left Arm] 140/93 Blood Pressure Mean 100 108 82 Blood Pressure Mean [Left Arm] 108 Pulse Oximetry 97 97 98 Oxygen Delivery Method Room Air Sepsis Recent Fever Within 48 Hours No Sepsis New/Unexplained Change in Mental Status No Sepsis Action Taken by Nursing No Action Required 05/07/21 18:54 05/07/21 19:40 Temperature Temperature Source Pulse Rate 79 Pulse Rate [Apical] 97 H Pulse Rate from SpO2 Sensor Pulse Rhythm Regular Respiratory Rate 18 15 Blood Pressure Blood Pressure [Left Arm] 123/62 Blood Pressure Mean Blood Pressure Mean [Left Arm] 82 Pulse Oximetry 95 95 Oxygen Delivery Method Room Air Room Air Sepsis Recent Fever Within 48 Hours Sepsis New/Unexplained Change in Mental Status Sepsis Action Taken by Nursing Laboratory Data Result diagrams: 05/07/21 17:34 05/07/21 17:34 Lab Results 05/07/21 05/07/21 05/07/21 Range/Units 17:34 17:34 17:34 WBC 13.26 H (4.8-10.8) K/uL RBC 4.33 (4.2-5.4) M/uL Hgb 14.6 (12.0-16.0) g/dL Hct 43.3 (37-47) % MCV 100.0 (80-100) fL MCH 33.7 (25-34) pg MCHC 33.7 (32-36) g/dL RDW Std Deviation 63.8 H (36.4-46.3) fL RDW Coeff of Rufina 17.4 H (11.5-14.5) % Plt Count 268 (130-400) K/uL MPV 11.5 H (7.4-10.4) fL Immature Gran % (Auto) 0.7 % Neut % (Auto) 72.8 % Lymph % (Auto) 11.5 % Hamilton % (Auto) 11.5 % Eos % (Auto) 3.0 % Baso % (Auto) 0.5 % Neut # (Auto) 9.66 H (1.4-6.5) K/uL Lymph # (Auto) 1.52 (1.2-3.4) K/uL Hamilton # (Auto) 1.53 H (0.11-0.59) K/uL Eos # (Auto) 0.40 (0-0.5) K/uL Baso # (Auto) 0.06 (0-0.2) K/uL Immature Gran # (Auto) 0.09 H (0.00-0.02) K/uL PT 12.1 H (9.0-12.0) Seconds INR 1.2 H (0.9-1.1) Sodium 139 (136-145) mmol/L Potassium 3.4 L (3.5-5.1) mmol/L Chloride 108 H (98-107) mmol/L Carbon Dioxide 22 (21-32) mmol/L Anion Gap 9.0 (3-11) BUN 10 (7-18) mg/dl Creatinine 0.69 (0.6-1.2) mg/dl Est Cr Clr Drug Dosing 91.0 ml/min Est GFR ( Amer) 108.1 ml/min Est GFR (Non-Af Amer) 93.3 ml/min BUN/Creatinine Ratio 14.7 (10-20) Glucose 82 (70-99) mg/dl Calcium 8.7 (8.5-10.1) mg/dl Total Bilirubin 8.8 H (0.2-1) mg/dl AST 223 H (15-37) U/L ALT 50 (12-78) U/L Alkaline Phosphatase 574 H (45-117) U/L Total Protein 6.4 (6.4-8.2) gm/dl Albumin 2.5 L (3.4-5.0) gm/dl Globulin 3.9 (2.5-4.0) gm/dl Albumin/Globulin Ratio 0.6 L (0.9-2) Lipase 86 (73-393) U/L Administered Medications Piperacillin Sod/Tazobactam Sod (Zosyn) 4.5 gm in 120 mls @ 240 mls/hr IV NOW ONE Stop: 05/07/21 20:19 Last Admin: 05/07/21 20:03 Dose: 240 mls/hr Documented by: [id number] Discontinued Medications Acetaminophen (Acetaminophen 325 Mg Tab) 650 mg PO NOW STA Stop: 05/07/21 20:04 Last Admin: 05/07/21 20:16 Dose: 650 mg Documented by: [id number] Ioversol (Optiray 320 100ml) 91 ml IV ONCE ONE Stop: 05/07/21 18:05 Last Admin: 05/07/21 18:05 Dose: 91 ml Documented by: [id number] Imaging Data Radiologist's Impression: Abdomen/Pelvis CT 05/07/21 18:[address] WITHOUT CONTRAST CT DOSE: 964.30 mGy.cm HISTORY: Acute lower abdominal pain with elevated LFTs and elevated bilirubin. History of metastatic breast cancer abd pain eugenio bili and lfts TECHNIQUE: Multiaxial CT images of the abdomen and pelvis were performed without contrast. A dose lowering technique was utilized adhering to the principles of ALARA. COMPARISON STUDY: CT abdomen and pelvis 03/20/2021, abdominal ultrasound 04/25/2021. FINDINGS: Coronary artery calcifications. The imaged inferior cardiac chambers are unremarkable. Trace right pleural effusion. No pneumatosis or pneumoperitoneum. The unenhanced spleen measures the upper limits of normal in size. Mildly atrophic pancreas. Unremarkable adrenal glands. Mild gallbladder distention. No biliary ductal dilation. Cirrhotic morphology of the liver. Evaluation of the previously described hepatic metastasis is limited without use of IV contrast. Heterogeneity of the parenchyma with scattered ill-defined lesions. Small volume of abdominopelvic ascites has increased from the February study. No urolith or obstructive uropathy. Partial urinary bladder distention. Unremarkable uterus. No abdominal aortic aneurysm. No new adenopathy. Mild nonspecific distal esophageal wall thickening. No bowel obstruction or bowel wall thickening. Clustered metallic density foci within the abdominal left lower quadrant are unchanged. Mild colonic diverticulosis. The visualized appendix is noninflamed. Scattered faint sclerotic changes suggestive of metastatic disease redemonstrated throughout the skeletal structures. No significant change from comparison. IMPRESSION: 1. Innumerable hepatic metastasis are better characterized on comparison contrasted enhanced exam. Findings suggestive of pseudocirrhosis redemonstrated. 2. Small volume of abdominopelvic ascites is new from the 03/20/2021 exam. 3. Sclerotic skeletal metastatic disease redemonstrated. 4. No bowel obstruction or bowel wall thickening. 5. Colonic diverticulosis. 6. Trace right pleural effusion. ACT 112: Negative or not required by law. The above report was generated using voice recognition software. It may contain grammatical, syntax or spelling errors. Electronically signed by: Dmitry Henderson M.D. 05/07/2021 7:32 PM Discharge Plan Visit Data Chief Complaint: Abnormal Labs/Diagnostic Testing Stated Complaint: ABNORMAL LAB RESULTS ED Provider: Paramjit Trujillo Discharge Problem: Elevated bilirubin, Metastatic breast cancer, Transaminitis, Leukocytosis Patient Disposition: Admitted As Inpatient Forms Stand Alone Forms: [facility] [place] [employer] Prescriptions Prescriptions: No Action levothyroxine 75 mcg capsule 75 mcg PO .QOD RF: 0 levothyroxine 100 mcg capsule 100 mcg PO .QOD RF: 0 ondansetron HCl [Zofran] 8 mg tablet 8 mg PO Q8 PRN (Reason: Nausea) RF: 0 Referrals Referrals: Veronica Mack CRNP [Primary Care Provider] -
[2021-05-07 17:49] LABS: Basophils # (auto) 0.06 K/uL (0-0.2); Basophils % (auto) 0.5 %; Hematocrit (blood only) 43.3 % (37-47); Hemoglobin 14.6 g/dL (12.0-16.0); Immature Granulocytes # (auto) 0.09 K/uL (0.00-0.02); Immature Granulocytes % (auto) 0.7 %; Lymphocytes # (auto) 1.52 K/uL (1.2-3.4); Lymphocytes % (auto) 11.5 %; Mean Corpuscular Hemoglobin 33.7 pg (25-34); Mean Corpuscular Hgb Conc 33.7 g/dL (32-36); Mean Platelet Volume 11.5 fL (7.4-10.4); Monocytes # (auto) 1.53 K/uL (0.11-0.59); Monocytes % (auto) 11.5 %; Neutrophils # (auto) 9.66 K/uL (1.4-6.5); Neutrophils % (auto) 72.8 %; Platelet Count 268 K/uL (130-400); RDW Coefficient of Variation 17.4 % (11.5-14.5); RDW Standard Deviation 63.8 fL (36.4-46.3); Red Blood Count 4.33 M/uL (4.2-5.4); White Blood Count 13.26 K/uL (4.8-10.8)
[2021-05-07] MEDS ORDERED: OPTIRAY 320 100ml IV ONE (18:04)
[2021-05-07 18:13] LABS: INR 1.2 (0.9-1.1); Prothrombin Time 12.1 Seconds (9.0-12.0)
[2021-05-07 18:22] LABS: Albumin Globulin Ratio 0.6 (0.9-2); Albumin Level 2.5 gm/dl (3.4-5.0); BUN Creatinine Ratio 14.7 (10-20); Bilirubin,Total 8.8 mg/dl (0.2-1); Calcium 8.7 mg/dl (8.5-10.1); Est GFR (African American) 108.1 ml/min; Est GFR (Non-African American) 93.3 ml/min; Globulin 3.9 gm/dl (2.5-4.0); Potassium 3.4 mmol/L (3.5-5.1); Total Protein 6.4 gm/dl (6.4-8.2)
--- NOTE | 2021-05-07 19:33 | CT Scan Report ---
ABDOMEN AND PELVIS CT WITHOUT CONTRAST CT DOSE: 964.30 mGy.cm HISTORY: Acute lower abdominal pain with elevated LFTs and elevated bilirubin. History of metastatic breast cancer abd pain eugenio bili and lfts TECHNIQUE: Multiaxial CT images of the abdomen and pelvis were performed without contrast. A dose lo wering technique was utilized adhering to the principles of ALARA. COMPARISON STUDY: CT abdomen and pelvis 03/20/2021, abdominal ultrasound 04/25/2021. FINDINGS: Coronary artery calcifications. The imaged inferior cardiac chambers are unremarkable. Trac e right pleural effusion. No pneumatosis or pneumoperitoneum. The unenhanced spleen measures the uppe r limits of normal in size. Mildly atrophic pancreas. Unremarkable adrenal glands. Mild gallbladder d istention. No biliary ductal dilation. Cirrhotic morphology of the liver. Evaluation of the previousl y described hepatic metastasis is limited without use of IV contrast. Heterogeneity of the parenchyma with scattered ill-defined lesions. Small volume of abdominopelvic ascites has increased from the Ma y study. No urolith or obstructive uropathy. Partial urinary bladder distention. Unremarkable uterus. No abdom inal aortic aneurysm. No new adenopathy. Mild nonspecific distal esophageal wall thickening. No bowel obstruction or bowel wall thickening. Clustered metallic density foci within the abdominal left lowe r quadrant are unchanged. Mild colonic diverticulosis. The visualized appendix is noninflamed. Scatte red faint sclerotic changes suggestive of metastatic disease redemonstrated throughout the skeletal s tructures. No significant change from comparison. IMPRESSION: 1. Innumerable hepatic metastasis are better characterized on comparison contrasted enhanced exam. Fi ndings suggestive of pseudocirrhosis redemonstrated. 2. Small volume of abdominopelvic ascites is new from the 03/20/2021 exam. 3. Sclerotic skeletal metastatic disease redemonstrated. 4. No bowel obstruction or bowel wall thickening. 5. Colonic diverticulosis. 6. Trace right pleural effusion. ACT 112: Negative or not required by law. The above report was generated using voice recognition software. It may contain grammatical, syntax o r spelling errors. Electronically signed by: Dmitry Henderson M.D. 05/07/2021 7:32 PM
[2021-05-07] MEDS ORDERED: PIPERACILL/TAZOBAC CONSULT ACTIVE PRN (19:50)
[2021-05-07] MEDS ORDERED: PIPERACILLIN/TAZOBACTAM 4.5 GM/120 ML BAG IV ONE (19:50)
[2021-05-07] MEDS ORDERED: ACETAMINOPHEN 325 MG TAB PO STA (20:03)
--- NOTE | 2021-05-07 22:02 | History & Physical Report ---
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 CT scan and MRI of liver and abdomen did not show obstruction. Patient's laboratory picture has in fact worsened. Consult her oncologist Dr. Barros. Consult gastroenterology Dr. Burton History of Present Illness Chief Complaint: The patient presents to the emergency department after being referred by her PCPs office for abnormal blood work performed earlier in the day today. Primary Care Provider: JUSTIN Santoyo The patient is a 60-year-old female with a past medical history including metastatic breast cancer and hypothyroidism who presents to the emergency department as a referral from her PCPs office due to abnormal lab work. Laboratories performed in the ED include the following significant abnormalities: Potassium 3.4, total bilirubin 8.8, AST 223, alk phos 574 and albumin 2.[address] of abdomen and pelvis which showed metastatic disease to the liver and pseudocirrhosis appearance, along with sclerotic skeletal metastases. The patient herself reports no difference in symptoms today. Allergies Allergy/AdvReac Type Severity Reaction Status Date / Time No Known Allergies Allergy Verified 05/07/21 17:52 Home Medications Medication Instructions Recorded Confirmed Type ondansetron HCl 8 mg tablet 8 mg PO Q8 PRN 09/16/19 05/07/21 History (Zofran) levothyroxine 100 mcg capsule 100 mcg PO .QOD cap 05/02/21 05/07/21 History levothyroxine 75 mcg capsule 75 mcg PO .QOD cap 05/02/21 05/07/21 History Past Med/Surg History Medical History (Updated 05/08/21 @ 04:28 by Fermin Ray MD) Abdominal pain Breast carcinoma Central venous catheter in place Dizziness GI bleed Hemorrhoids History of hemochromatosis Hypothyroidism (acquired) Liver metastasis Nausea Orthostatic hypotension Vertigo Surgical History History of mastectomy, total Family History (Updated 05/02/21 @ 08:25 by Avis Rodriguez RN) Mother , 46yo Myocardial infarction Father , in his 50s Accident Brother Accident Brother No problems noted. Brother No problems noted. Brother No problems noted. Brother No problems noted. Brother No problems noted. Brother No problems noted. Sister No problems noted. Sister No problems noted. Sister Crohn's disease Son No problems noted. Daughter No problems noted. Other Cancer Social History (Updated 05/02/21 @ 08:27 by Avis Rodriguez RN) Smoking Status: Current every day smoker Tobacco Type: Cigarettes Cigarettes Per Day: 3-5; Second Hand Exposure: No; Do You Dip or Chew Tobacco: No; Hx Alcohol Use: No Hx Substance Use: No Preferred Language: Syrian Communication Ability: Effective Visual Impairment: No Limitations Hearing Ability: Normal Digitizer Required: No Beliefs That Will Affect Care: None marital status: Current Living Situation: Spouse current occupational status: previously employed Other Information That Helps Us Care for You: No Feels Safe at Home: Yes Safety Concerns: Feels Safe At This Time caffeine: No during the past year weight has: remained stable Assistive Devices: Denture - Upper, Denture - Lower and Glasses Assistive Devices Comment: readers Review of Systems Review of Systems: The patient denies chest pain, palpitations, shortness of breath, dyspnea on exertion, cough, lower extremity swelling, sore throat, fevers, chills, sweats, weight change, fatigue, nausea, vomiting, diarrhea , constipation, abdominal pain, pelvic pain, blood in urine or stool, dysuria, urinary frequency or urgency, lightheadedness, dizziness, headache, memory loss, loss of consciousness, rash, abnormal bruising or bleeding, imbalance, focal or generalized weakness, numbness or tingling in arms or legs, generalized arthralgias or myalgias, back or neck pain, or night sweats. The review of systems is otherwise negative other than for that already noted above, and at least 10 systems have been reviewed. Physical Exam Physical Exam: The patient is awake, alert and oriented 3, well developed and well nourished, normocephalic and atraumatic, lying in bed and in no acute distress. HEENT--PERRL, EOMI, mucous membranes and oropharynx normal, scleral icterus noted Neck--supple. No JVD. No bruits. Thyroid normal, trachea midline, no adenopathy. Heart--normal S1 and S2. No murmurs, rubs or gallops. Lungs--clear bilaterally, no respiratory distress, no accessory muscle use. Abdomen--normal bowel sounds and soft. Nontender. Nondistended. Extremities--no cyanosis or clubbing. No edema Dermatologic--jaundice Neurologic--cranial nerves II through XII grossly intact. Rheumatologic--normal range of motion. Psychiatric--normal affect. Results & Data Results & Data ([facility]) Vital Signs (Past 12 Hours) Vital Signs Temp Pulse Pulse Resp BP BP Pulse Ox 05/07/21 20:30 98 H 16 96/64 L 98 05/07/21 20:00 101 H 18 122/74 97 05/07/21 19:57 101 H 19 122/77 96 05/07/21 19:40 79 15 95 05/07/21 18:54 97 H 18 123/62 95 05/07/21 18:43 91 H 19 123/62 98 05/07/21 17:15 96 H 100 H 23 140/93 140/93 97 05/07/21 15:34 97.5 F L 113 H 18 136/82 97 Laboratory Results Laboratory Results WBC 13.26 K/uL (4.8-10.8) H 05/07/21 17:34 RBC 4.33 M/uL (4.2-5.4) 05/07/21 17:34 Hgb 14.6 g/dL (12.0-16.0) 05/07/21 17:34 Hct 43.3 % (37-47) 05/07/21 17:34 MCV 100.0 fL (80-100) 05/07/21 17:34 MCH 33.7 pg (25-34) 05/07/21 17:34 MCHC 33.7 g/dL (32-36) 05/07/21 17:34 RDW Std Deviation 63.8 fL (36.4-46.3) H 05/07/21 17:34 RDW Coeff of Rufina 17.4 % (11.5-14.5) H 05/07/21 17:34 Plt Count 268 K/uL (130-400) 05/07/21 17:34 MPV 11.5 fL (7.4-10.4) H 05/07/21 17:34 Immature Gran % (Auto) 0.7 % 05/07/21 17:34 Neut % (Auto) 72.8 % 05/07/21 17:34 Lymph % (Auto) 11.5 % 05/07/21 17:34 [place] % (Auto) 11.5 % 05/07/21 17:34 Eos % (Auto) 3.0 % 05/07/21 17:34 Baso % (Auto) 0.5 % 05/07/21 17:34 Neut # (Auto) 9.66 K/uL (1.4-6.5) H 05/07/21 17:34 Lymph # (Auto) 1.52 K/uL (1.2-3.4) 05/07/21 17:34 [place] # (Auto) 1.53 K/uL (0.11-0.59) H 05/07/21 17:34 Eos # (Auto) 0.40 K/uL (0-0.5) 05/07/21 17:34 Baso # (Auto) 0.06 K/uL (0-0.2) 05/07/21 17:34 Immature Gran # (Auto) 0.09 K/uL (0.00-0.02) H 05/07/21 17:34 PT 12.1 Seconds (9.0-12.0) H 05/07/21 17:34 INR 1.2 (0.9-1.1) H 05/07/21 17:34 Sodium 139 mmol/L (136-145) 05/07/21 17:34 Potassium 3.4 mmol/L (3.5-5.1) L 05/07/21 17:34 Chloride 108 mmol/L (98-107) H 05/07/21 17:34 Carbon Dioxide 22 mmol/L (21-32) 05/07/21 17:34 Anion Gap 9.0 (3-11) 05/07/21 17:34 BUN 10 mg/dl (7-18) 05/07/21 17:34 Creatinine 0.69 mg/dl (0.6-1.2) 05/07/21 17:34 Est Cr Clr Drug Dosing 91.0 ml/min 05/07/21 17:34 Est GFR ( Amer) 108.1 ml/min 05/07/21 17:34 Est GFR (Non-Af Amer) 93.3 ml/min 05/07/21 17:34 BUN/Creatinine Ratio 14.7 (10-20) 05/07/21 17:34 Glucose 82 mg/dl (70-99) 05/07/21 17:34 Calcium 8.7 mg/dl (8.5-10.1) 05/07/21 17:34 Total Bilirubin 8.8 mg/dl (0.2-1) H 05/07/21 17:34 AST 223 U/L (15-37) H 05/07/21 17:34 ALT 50 U/L (12-78) 05/07/21 17:34 Alkaline Phosphatase 574 U/L (45-117) H 05/07/21 17:34 Total Protein 6.4 gm/dl (6.4-8.2) 05/07/21 17:34 Albumin 2.5 gm/dl (3.4-5.0) L 05/07/21 17:34 Globulin 3.9 gm/dl (2.5-4.0) 05/07/21 17:34 Albumin/Globulin Ratio 0.6 (0.9-2) L 05/07/21 17:34 Lipase 86 U/L (73-393) 05/07/21 17:34 COVID-19 Eval Order Covid19 at [facility] 05/07/21 20:17 SARS-CoV-2 (PCR) NEGATIVE (Negative) 05/07/21 20:17 Impressions Abdomen/Pelvis CT 05/07/21 18:[address] WITHOUT CONTRAST CT DOSE: 964.30 mGy.cm HISTORY: Acute lower abdominal pain with elevated LFTs and elevated bilirubin. History of metastatic breast cancer abd pain eugenio bili and lfts TECHNIQUE: Multiaxial CT images of the abdomen and pelvis were performed without contrast. A dose lowering technique was utilized adhering to the principles of ALARA. COMPARISON STUDY: CT abdomen and pelvis 03/20/2021, abdominal ultrasound 04/25/2021. FINDINGS: Coronary artery calcifications. The imaged inferior cardiac chambers are unremarkable. Trace right pleural effusion. No pneumatosis or pneumoperitoneum. The unenhanced spleen measures the upper limits of normal in size. Mildly atrophic pancreas. Unremarkable adrenal glands. Mild gallbladder distention. No biliary ductal dilation. Cirrhotic morphology of the liver. Evaluation of the previously described hepatic metastasis is limited without use of IV contrast. Heterogeneity of the parenchyma with scattered ill-defined lesions. Small volume of abdominopelvic ascites has increased from the February study. No urolith or obstructive uropathy. Partial urinary bladder distention. Unremarkable uterus. No abdominal aortic aneurysm. No new adenopathy. Mild no nspecific distal esophageal wall thickening. No bowel obstruction or bowel wall thickening. Clustered metallic density foci within the abdominal left lower quadrant are unchanged. Mild colonic diverticulosis. The visualized appendix is noninflamed. Scattered faint sclerotic changes suggestive of metastatic disease redemonstrated throughout the skeletal structures. No significant change from comparison. IMPRESSION: 1. Innumerable hepatic metastasis are better characterized on comparison contrasted enhanced exam. Findings suggestive of pseudocirrhosis redemonstrated. 2. Small volume of abdominopelvic ascites is new from the 03/20/2021 exam. 3. Sclerotic skeletal metastatic disease redemonstrated. 4. No bowel obstruction or bowel wall thickening. 5. Colonic diverticulosis. 6. Trace right pleural effusion. ACT 112: Negative or not required by law. The above report was generated using voice recognition software. It may contain grammatical, syntax or spelling errors. Electronically signed by: Dmitry Henderson M.D. 05/07/2021 7:32 PM Cholangiopancreatography MRI 05/07/21 20:28 MRCP CLINICAL HISTORY: Elevated hepatic transaminases. Elevated bilirubin. Breast cancer. COMPARISON STUDY: Abdominal CT dated 05/07/2021. TECHNIQUE: Abdominal MRCP is performed utilizing various T2-weighted sequences in the axial and coronal planes. IV contrast was not administered for this examination. 3-D reformats are created and assessed. The examination is degraded by motion artifact. FINDINGS: The gallbladder is normal as visualized with no gallstones identified. There is no intra or extrahepatic biliary ductal dilatation. The common bile duct measures up to 5 mm in diameter. There are no intraluminal filling defects to suggest choledocholithiasis. The pancreatic duct is normal in caliber. The liver is enlarged measuring up to 20.4 cm in length. There are diffuse hepatic lesions consistent with metastatic disease. The unenhanced spleen, pancreas, adrenal glands, and kidneys are grossly normal. The abdominal aorta is normal in course and caliber. There is a small volume of upper abdominal ascites. No bowel obstruction is identified. There is trace right pleural effusion. IMPRESSION: 1. The liver is enlarged and infiltrated by diffuse hepatic metastatic disease. 2. Normal MRCP. 3. Small volume abdominal ascites. 4. Trace right pleural effusion. Electronically signed by: Robert Holder M.D. 05/07/2021 10:12 PM Code Status & VTE Plan Code Status Full code VTE Prophylaxis Plan VTE Prophylaxis will be ordered: Yes PG Care Time/CCT Total # of Minutes Spent Total Time Spent with Patient: Total time spent is greater than 50% in coordination of care (as documented) at patient's floor/unit and/or counseling patient: Coding Level of Care Code 25840 Initial Inpt Care Lvl 2 Diagnoses Metastatic breast cancer C50.919 Liver metastasis C78.7 Hypothyroidism (acquired) E03.9
--- NOTE | 2021-05-07 22:14 | Magnetic Resonance Report ---
MRCP CLINICAL HISTORY: Elevated hepatic transaminases. Elevated bilirubin. Breast cancer. COMPARISON STUDY: Abdominal CT dated 05/07/2021. TECHNIQUE: Abdominal MRCP is performed utilizing various T2-weighted sequences in the axial and coron al planes. IV contrast was not administered for this examination. 3-D reformats are created and asses sed. The examination is degraded by motion artifact. FINDINGS: The gallbladder is normal as visualized with no gallstones identified. There is no intra or extrahepa tic biliary ductal dilatation. The common bile duct measures up to 5 mm in diameter. There are no int raluminal filling defects to suggest choledocholithiasis. The pancreatic duct is normal in caliber. The liver is enlarged measuring up to 20.4 cm in length. There are diffuse hepatic lesions consistent with metastatic disease. The unenhanced spleen, pancreas, adrenal glands, and kidneys are grossly no rmal. The abdominal aorta is normal in course and caliber. There is a small volume of upper abdominal ascites. No bowel obstruction is identified. There is trace right pleural effusion. IMPRESSION: 1. The liver is enlarged and infiltrated by diffuse hepatic metastatic disease. 2. Normal MRCP. 3. Small volume abdominal ascites. 4. Trace right pleural effusion. Electronically signed by: Robert Holder M.D. 05/07/2021 10:12 PM
[2021-05-07] MEDS ORDERED: ONDANSETRON INJ 2 MG/ML 2 ML VIAL IV PRN (23:29)
[2021-05-08] MEDS: NSS + 20MEQ KCL 20 MEQ/1,000 ML BAG IV SCH ×3 (00:34→20:25)
[2021-05-08] MEDS: PIPERACILLIN/TAZOBACTAM 4.5 GM in DEXTROSE 5% 100 ML IV SCH ×3 (04:57→20:25)
[2021-05-08] MEDS ORDERED: LEVOTHYROXINE SODIUM 75 MCG TABLET PO SCH (06:30)
[2021-05-08 08:14] LABS: Basophils # (auto) 0.04 K/uL (0-0.2); Basophils % (auto) 0.4 %; Eosinophils # (auto) 0.47 K/uL (0-0.5); Eosinophils % (auto) 4.7 %; Hematocrit (blood only) 40.3 % (37-47); Hemoglobin 13.8 g/dL (12.0-16.0); Immature Granulocytes # (auto) 0.08 K/uL (0.00-0.02); Immature Granulocytes % (auto) 0.8 %; Lymphocytes # (auto) 1.37 K/uL (1.2-3.4); Lymphocytes % (auto) 13.7 %; Mean Corpuscular Hemoglobin 33.7 pg (25-34); Mean Corpuscular Hgb Conc 34.2 g/dL (32-36); Mean Corpuscular Volume 98.3 fL (80-100); Mean Platelet Volume 11.2 fL (7.4-10.4); Monocytes # (auto) 1.34 K/uL (0.11-0.59); Monocytes % (auto) 13.4 %; Neutrophils # (auto) 6.67 K/uL (1.4-6.5); Platelet Count 242 K/uL (130-400); RDW Coefficient of Variation 17.4 % (11.5-14.5); RDW Standard Deviation 61.8 fL (36.4-46.3); White Blood Count 9.97 K/uL (4.8-10.8)
[2021-05-08 08:28] LABS: INR 1.3 (0.9-1.1); Partial Thromboplastin Ratio 1.3; Partial Thromboplastin Time 33.3 Seconds (21.0-31.0); Prothrombin Time 12.8 Seconds (9.0-12.0)
[2021-05-08 08:53] LABS: Albumin Globulin Ratio 0.7 (0.9-2); Albumin Level 2.2 gm/dl (3.4-5.0); BUN Creatinine Ratio 12.6 (10-20); Bilirubin,Total 9.2 mg/dl (0.2-1); Creatinine Clr Calc Pharmacy 76.1 ml/min; Est GFR (African American) 88.9 ml/min; Est GFR (Non-African American) 76.7 ml/min; Globulin 3.3 gm/dl (2.5-4.0); Potassium 3.7 mmol/L (3.5-5.1); Total Protein 5.5 gm/dl (6.4-8.2)
--- NOTE | 2021-05-08 12:23 | Communication Note ---
Date of Service: May 08, [address] Stoner. The patient has been admitted to the hospital for abnormal laboratory findings and issues unrelated to metastatic disease in the brain. We will delay the patient's planned CT simulation today for radiation therapy planning for brain SBRT as per discussion with Dr. Stoner. If the patient's condition improves, we will reschedule the patient for a CT simulation on Wednesday next week in the outpatient setting. Please call us with any further questions or concerns regarding scheduling.
--- NOTE | 2021-05-08 14:30 | Gastrointestinal Consultation ---
Date of Consultation May 08, 2021 Assessment & Plan (1) Liver metastasis: (2) Elevated bilirubin: in the setting of fever, ?biliary infection, MRCP was unremarkable. Responding well to IV abx. Currently asymptomatic Recs: --diet as tolerated --complete a 10-14 day course of antibiotics for a possible biliary source of infection --trend LFTs daily --no plans for any endoscopic procedures at this time --follow up with [facility] 1 week after discharge Thank you for allowing me to participate in the care of this patient. History of Present Illness Reason for Consultation: abnormal LFTs Requesting Physician: Paramjit Trujillo Attending Physician: Brian Stoner History of Present Illness 60 yo female with hx metastatic breast cancer to the liver and hypothyroidism who presented yesterday after abnormal lab work. Found to have total bilirubin of 8.8, ALP of 574. She is asymptomatic currently, was febrile on admission. She had a CT abdomen/pelvis which showed no biliary dilation, MRCP that was also normal without CBD dilation nor filling defects, diffuse hepatic metastases were noted. Denies any abdominal pains, nausea, vomiting, she is eating but has decreased appetite, last chemo was in January 2021. She was started on IV abx zosyn and ALP has improved, bilirubin stable. She feels well today. labs reviewed. VSS. now afebrile. Allergies Allergy/AdvReac Type Severity Reaction Status Date / Time No Known Allergies Allergy Verified 05/07/21 17:52 Home Medications Medication Instructions Recorded Confirmed Type ondansetron HCl 8 mg tablet 8 mg PO Q8 PRN 09/16/19 05/07/21 History (Zofran) levothyroxine 100 mcg capsule 100 mcg PO .QOD cap 05/02/21 05/07/21 History levothyroxine 75 mcg capsule 75 mcg PO .QOD cap 05/02/21 05/07/21 History Patient History Medical History Abdominal pain Breast carcinoma Central venous catheter in place Dizziness GI bleed Hemorrhoids History of hemochromatosis Hypothyroidism (acquired) Liver metastasis Nausea Orthostatic hypotension Vertigo Surgical History History of mastectomy, total Family History Mother , 46yo Myocardial infarction Father , in his 50s Accident Brother Accident Brother No problems noted. Brother No problems noted. Brother No problems noted. Brother No problems noted. Brother No problems noted. Brother No problems noted. Sister No problems noted. Sister No problems noted. Sister Crohn's disease Son No problems noted. Daughter No problems noted. 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 Beliefs That Will Affect Care: None marital status: Current Living Situation: Spouse current occupational status: previously employed Other Information That Helps Us Care for You: No Feels Safe at Home: Yes Safety Concerns: Feels Safe At This Time caffeine: No during the past year weight has: remained stable Assistive Devices: None Assistive Devices Comment: readers Review of Systems Constitutional: no fever, no chills and no weight loss Eyes: as per Subjective / HPI Ear, Nose, Mouth, Throat: as per Subjective / HPI Respiratory: no dyspnea and no dyspnea on exertion Cardiovascular: no chest pain and no palpitations Gastrointestinal: as per Subjective / HPI Musculoskeletal: no joint pain and no swelling Integumentary: no rash and no lesions Neurologic: no numbness and no paresthesia Psychiatric: no depression and no anxiety Endocrine: no fatigue Hematologic / Lymphatic: no easy bleeding and no easy bruising Physical Exam Constitutional: WD/WN, vitals as above Eyes: EOM intact bilaterally Neck: normal visual inspection Respiratory: normal respiratory effort, lungs clear to auscultation Cardiovascular: RRR, no murmur, no edema Gastrointestinal (Abdomen): Inspection/Auscultation: abdomen normal to inspection; abdomen not distended Percussion/Palpation: + abdomen tender (mild upper abdominal ) and abdomen soft; no splenomegaly Musculoskeletal: Extremities: no cyanosis Gait: normal gait Skin: no rashes, warm and dry Neurologic: moves all extremities Psychiatric: A+Ox3, euthymic affect Results & Data ([facility]) Vital Signs (Past 12 Hours) Vital Signs Temp Pulse Resp BP Pulse Ox 05/08/21 07:55 36.5 C 78 18 110/75 96 PG Care Time/CCT Total # of Minutes Spent Total Time Spent with Patient: Total time spent is greater than 50% in coordination of care (as documented) at patient's floor/unit and/or counseling patient: Coding Level of Care Code 76827 Inpt Consult Level 4 Diagnoses Liver metastasis C78.7 Elevated bilirubin R17
[2021-05-08] MEDS ORDERED: oxyCODONE HCL IR 5 MG TAB (IMMEDIATE RELEASE) PO STA (20:21)
--- NOTE | 2021-05-08 21:10 | Hospitalist Progress Note ---
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 CT scan and MRI of liver and abdomen did not show obstruction. Patient's laboratory picture has in fact worsened, which is why patient was admitted. Bilirubin, and liver enzymes were elevated. Imaging shows larger mets to the liver. This carries a worsening prognosis. Discussed that we will discuss with Dr. Barros regarding if other treatment is available. Will also consult with Palliative care for goals of care. will hold off consult with radiation until wednesday. Consult her oncologist Dr. Barros. Consult gastroenterology Dr. Burton D/W Sarah Quach, Dr. Barros and Dr. Martines (2) Metastatic breast cancer: (3) Hypothyroidism (acquired): Plan: Continue levothyroxine Admission and Anticipated Discharge Date Admission Date: May 07, 2021 Subjective Patient reports feeling tired. She has no new complaints. She is agreeable in a palliative care consult Review of Systems Review of Systems: All systems reviewed & are unremarkable except as noted in HPI & below Physical Exam Physical Exam: The patient is awake, alert and oriented 3, well developed and well nourished, normocephalic and atraumatic, lying in bed and in no acute distress. HEENT--PERRL, EOMI, mucous membranes and oropharynx normal, scleral icterus noted Neck--supple. No JVD. No bruits. Thyroid normal, trachea midline, no adenopathy. Heart--normal S1 and S2. No murmurs, rubs or gallops. Lungs--clear bilaterally, no respiratory distress, no accessory muscle use. Abdomen--normal bowel sounds and soft. Nontender. Nondistended. Extremities--no cyanosis or clubbing. No edema Dermatologic--jaundice Neurologic--cranial nerves II through XII grossly intact. Rheumatologic--normal range of motion. Psychiatric--normal affect. Results & Data Results & Data ([facility]) Vital Signs (Past 12 Hours) Vital Signs Temp Pulse Resp BP Pulse Ox 05/08/21 16:06 36.7 C 60 19 109/74 92 PG Care Time/CCT Total # of Minutes Spent Total Time Spent with Patient: Total time spent is greater than 50% in coordination of care (as documented) at patient's floor/unit and/or counseling patient: Coding Level of Care Code 87110 Subseq Hosp Care Lvl 3 Diagnoses Liver metastasis C78.7 Metastatic breast cancer C50.919 Hypothyroidism (acquired) E03.9 Time Spent (min) 40
[2021-05-09] MEDS: PIPERACILLIN/TAZOBACTAM 4.5 GM in DEXTROSE 5% 100 ML IV SCH ×2 (04:13→12:10)
[2021-05-09] MEDS: NSS + 20MEQ KCL 20 MEQ/1,000 ML BAG IV SCH (06:20)
[2021-05-09] MEDS ORDERED: LEVOTHYROXINE SODIUM 100 MCG TABLET PO SCH (06:30)
[2021-05-09 08:39] LABS: Basophils # (auto) 0.06 K/uL (0-0.2); Basophils % (auto) 0.6 %; Eosinophils # (auto) 0.42 K/uL (0-0.5); Eosinophils % (auto) 4.4 %; Hematocrit (blood only) 40.9 % (37-47); Hemoglobin 13.7 g/dL (12.0-16.0); Immature Granulocytes # (auto) 0.04 K/uL (0.00-0.02); Immature Granulocytes % (auto) 0.4 %; Lymphocytes # (auto) 1.25 K/uL (1.2-3.4); Mean Corpuscular Hemoglobin 33.9 pg (25-34); Mean Corpuscular Hgb Conc 33.5 g/dL (32-36); Mean Corpuscular Volume 101.2 fL (80-100); Mean Platelet Volume 11.3 fL (7.4-10.4); Monocytes # (auto) 1.33 K/uL (0.11-0.59); Monocytes % (auto) 13.9 %; Neutrophils # (auto) 6.48 K/uL (1.4-6.5); Neutrophils % (auto) 67.7 %; Platelet Count 234 K/uL (130-400); RDW Coefficient of Variation 18.2 % (11.5-14.5); RDW Standard Deviation 66.8 fL (36.4-46.3); Red Blood Count 4.04 M/uL (4.2-5.4); White Blood Count 9.58 K/uL (4.8-10.8)
[2021-05-09 08:48] LABS: INR 1.3 (0.9-1.1); Partial Thromboplastin Ratio 1.3; Partial Thromboplastin Time 33.9 Seconds (21.0-31.0); Prothrombin Time 13.2 Seconds (9.0-12.0)
[2021-05-09 09:30] LABS: Albumin Globulin Ratio 0.6 (0.9-2); Albumin Level 2.1 gm/dl (3.4-5.0); Bilirubin,Total 8.7 mg/dl (0.2-1); Calcium 7.6 mg/dl (8.5-10.1); Est GFR (African American) 94.4 ml/min; Est GFR (Non-African American) 81.5 ml/min; Globulin 3.6 gm/dl (2.5-4.0); Potassium 4.1 mmol/L (3.5-5.1); Total Protein 5.7 gm/dl (6.4-8.2)
--- NOTE | 2021-05-09 09:48 | Consultation Report ---
REASON FOR CONSULTATION: Metastatic breast cancer. HISTORY OF PRESENT ILLNESS: The patient is a pleasant 60-year-old heavily pretreated female with his tory of metastatic breast cancer, currently under our care at [facility] admitted to hospital on 05/07/2021 because of grossly abnormal laboratories. Specifically, she had laboratories at [facility] reflecting a pot assium of 3.4, total bilirubin of 8.8, AST 223 and alkaline phosphatase 574 with an albumin of 2.5. Imaging studies including the abdomen and pelvis revealed increasing hepatic metastatic disease along with pseudocirrhosis type appearance. The patient also relates having bile colored urine over the p ast several days leading up to admission, which has since cleared spontaneously. Again, the patient has been heavily pretreated presently following with Sarah Walters a certified physician assistant analyst . The patient expressed desire to receive salvage chemotherapy and will audit her chart to discuss p ossible salvage treatment options moving forward. PAST MEDICAL HISTORY: Significant for metastatic breast cancer, hemochromatosis, hemorrhoids, gastro intestinal bleeding, orthostatic hypotension, vertigo and liver metastatic disease, hypothyroidism. PAST SURGICAL HISTORY: Status post total mastectomy. PRIOR TO ADMISSION: Prior to admission levothyroxine alternating doses 100/75 mcg every other day, Z ofran 8 mg p.o. q. 8 hours p.r.n. ALLERGIES: NO KNOWN DRUG ALLERGIES. FAMILY HISTORY: Mother is , age 46, attributable to myocardial infarction. Father by a ccidental injury in his 50s. She also lost a brother to accident. SOCIAL HISTORY: Current every day smoker. She resides with her spouse. She is currently on disabil ity. REVIEW OF SYSTEMS: CONSTITUTIONAL: Negative for fevers, chills or sweats. She is not anorexic or losing weight. Skin jaundiced in appearance. Negative for dermatoses otherwise. HEENT: Negative for headaches, lightheadedness or dizziness. No acute visual or hearing deficits. No sinus symptoms, sore throat or dysphagia. LYMPH: No history of lymphoproliferative disease. CARDIAC: Negative coronary artery disease. No current angina or palpitations. PULMONARY: Negative for COPD. No shortness of breath, dyspnea or orthopnea. No cough or hemoptysis . GASTROINTESTINAL: Negative for abdominal pain, nausea, vomiting, diarrhea, constipation, hematochezi a or melena stools. GENITOURINARY: No hematuria, dysuria, urinary incontinence. PSYCHIATRIC: Negative for anxiety, depression, or psychoses. MUSCULOSKELETAL: Negative for focal muscle weakness. No arthralgias. ENDOCRINE: Positive for hypothyroidism. HEMATOLOGIC: Negative for anemia, thrombophilia or bleeding diathesis. PHYSICAL EXAMINATION: GENERAL: Very pleasant 60-year-old postmenopausal female, awake, alert, appropriate, in no acute dis tress. VITAL SIGNS: Temperature 36.7, pulse 80, respiratory rate 18, blood pressure 100/68. SKIN: Warm, dry, noncyanotic without petechia, rash or ecchymosis. HEENT: Head is atraumatic, normocephalic. Eyes: PERRLA, EOMI. Sclerae are nonicteric. Nares dsouza nt without rhinorrhea or discharge. Throat clear. Tongue midline. Mucous membranes are moist. NECK: Bull neck, supple. HEART: Regular rate and rhythm. No clicks, rubs, murmurs or gallops. LUNGS: Clear to auscultation bilaterally. ABDOMEN: Obese, soft, nontender, nondistended, without palpable hepatosplenomegaly. No rigidity or guarding. EXTREMITIES: Musculoskeletal strength and pulses are equal in all 4 quadrants. No clubbing, cyanosi s or edema. NEUROLOGIC: She is awake, alert and oriented x3. Cranial nerves grossly intact. LABORATORY DATA: WBC count 9970, hemoglobin 13.8, platelet count 242,000. Her PT is 12.8 seconds, P TT 33.3. Sodium 139, potassium 3.7, chloride 109, carbon dioxide 22, creatinine 0.82, BUN 10, calciu m 8.0, AST 194, ALT 43, alkaline phosphatase 484, albumin 2.2. IMPRESSION: 1. Progressing liver metastatic disease/metastatic breast cancer. 2. Hypothyroidism. 3. Hyperbilirubinemia. 4. Hypoalbuminemia. PLAN: The patient is a very pleasant heavily pretreated 60-year-old female currently under our care at [facility] with metastatic breast cancer. Apparently, she was in the offic e a couple of days ago, had a battery of laboratories many of which were markedly abnormal and was di rectly admitted to the hospital. IMAGING: CT scan of the abdomen and pelvis done on admission reveals innumerable hepatic metastatic lesions. Findings suggestive of a pseudocirrhosis. Small volume of abdominopelvic ascites, new from her late 02/2021 exam. Sclerotic skeletal metastatic disease is redemonstrated as well. MRCP again confirms diffuse hepatic metastatic disease. RECOMMENDATIONS: Clearly unfortunately, the patient is a rapidly progressing and at bedside today ex pressed interest in receiving salvage chemotherapy moving forward. I was very surprised she actually looked quite good at bedside. I believe her performance status would certainly support a salvage re gimen. Considerations include oral Xeloda, IV gemcitabine, Navelbine or perhaps Doxil would be anoth er option moving forward. The patient understands with her abnormal liver indices. Her liver could be a compromise further by salvage therapy, but is willing to pursue that risk. Therefore, if there are no other outstanding medical issues, she could be discharged home, seen in our office to discuss options moving forward. The patient is not ready for palliation as of yet. Thank you very much for allowing me to participate in her care and I will ensure that appropriate fol lowup is scheduled. Job ID: [id number]
[2021-05-09] MEDS ORDERED: ACETAMINOPHEN 500 MG TAB PO PRN (12:19)
--- NOTE | 2021-05-09 12:25 | Gastroenterology Progress Note ---
Date of Service May 09, 2021 Assessment & Plan (1) Liver metastasis: Plan: abnormal LFTs secondary to worsening hepatic metastasis, disease progression Recs: 1. complete 10 day course of antibiotics 2. planning for salvage chemotherapy with CCP/Dr. Barros as an outpatient 3.supportive care 4.can follow up with [facility] in 1-2 weeks after discharge Admission and Anticipated Discharge Date Admission Date: May 07, 2021 Subjective no events overnight, notes pelvic pressure/discomfort but otherwise no abdominal pains, pruritus or other issues. She discussed with Dr. Barros and wants to try salvage therapy, and will be planning for that when she follows up with them. VSS. labs reviewed. Review of Systems Constitutional: no fever and no chills Respiratory: no cough, no dyspnea and no dyspnea on exertion Cardiovascular: no chest pain and no dyspnea Gastrointestinal: as per Subjective / HPI Psychiatric: no depression and no anxiety Physical Exam Constitutional: WD/WN, vitals as above Respiratory: normal respiratory effort, lungs clear to auscultation Cardiovascular: RRR, no murmur, no edema Gastrointestinal (Abdomen): normal bowel sounds, soft, nontender, no hepat osplenomegaly Musculoskeletal: no lower extremity edema Psychiatric: A+Ox3, euthymic affect Results & Data Results & Data ([facility]) Vital Signs (Past 12 Hours) Vital Signs Temp Pulse Resp BP Pulse Ox 05/09/21 12:07 36.7 C 88 19 106/70 96 05/09/21 07:48 36.7 C 80 18 100/68 96 PG Care Time/CCT Total # of Minutes Spent Total Time Spent with Patient: Total time spent is greater than 50% in coordination of care (as documented) at patient's floor/unit and/or counseling patient: Coding Level of Care Code 03439 Subseq Hosp Care Lvl 3 Diagnoses Liver metastasis C78.7
[2021-05-09] MEDS ORDERED: HEPARIN 100 UNIT/ML 5ML FLUSH ONE (14:25)
--- NOTE | 2021-05-10 18:48 | Discharge Summary ---
Date of Service May 09, 2021 Admission HPI Per Admitting Provider The patient is a 60-year-old female with a past medical history including metastatic breast cancer and hypothyroidism who presents to the emergency department as a referral from her PCPs office due to abnormal lab work. Laboratories performed in the ED include the following significant abnormalities: Potassium 3.4, total bilirubin 8.8, AST 223, alk phos 574 and albumin 2.[address] of abdomen and pelvis which showed metastatic disease to the liver and pseudocirrhosis appearance, along with sclerotic skeletal metastases. The patient herself reports no difference in symptoms today. Principal Diagnosis Liver metastasis Discharge Exam The patient is awake, alert and oriented 3, well developed and well nourished, normocephalic and atraumatic, lying in bed and in no acute distress. HEENT--PERRL, EOMI, mucous membranes and oropharynx normal, scleral icterus noted Neck--supple. No JVD. No bruits. Thyroid normal, trachea midline, no adenopathy. Heart--normal S1 and S2. No murmurs, rubs or gallops. Lungs--clear bilaterally, no respiratory distress, no accessory muscle use. Abdomen--normal bowel sounds and soft. Nontender. Nondistended. Extremities--no cyanosis or clubbing. No edema Dermatologic--jaundice Neurologic--cranial nerves II through XII grossly intact. Rheumatologic--normal range of motion. Psychiatric--normal affect. Discharge Data Allergies Allergy/AdvReac Type Severity Reaction Status Date / Time No Known Allergies Allergy Verified 05/07/21 17:52 Consultations 05/07/21 19:57 ED Decision to Admit Stat 05/08/21 04:25 Consult Gastroenterology Routine Consult Hematology Routine 05/08/21 11:56 Consult Palliative Care Routine Ordered Studies 05/07/21 18:13 CT abd pelvis wo con Stat 05/07/21 20:28 MR MRCP Stat Hospital Course (1) Liver metastasis: Metastatic breast cancer to liver/pseudocirrhosis- Patient with known metastases to the liver. CT scan and MRI of liver and abdomen did not show obstruction. Patient's laboratory picture has in fact worsened, which is why patient was admitted. Bilirubin, and liver enzymes were elevated. Imaging shows larger mets to the liver. This carries a worsening prognosis. Discussed that we will discuss with Dr. Barros regarding if other treatment is available. It appears that there are other treatment regimens that can be tried. Palliative care consult was ordered, however patient defered this to outpatient as she wanted to be discharge before 2pm. will hold off consult with radiation until wednesday. Consult her oncologist Dr. Barros. Consult gastroenterology Dr. Burton: appreciate input will complete 8 days of treatment of antibiotic. May increase to 10 days, recommend followup with hem/onc and/or PCP. D/W Dr. Fiorella Armenta and Dr. Martines (2) Metastatic breast cancer: (3) Hypothyroidism (acquired): Continue levothyroxine Total Time Total Time Spent Total Time Spent (In Minutes): 32 Discharge Plan Discharge Items Patient Disposition: Home - Self-Care Reason For Visit: ABNORMAL LFT'S, BREAST CA METS Discharge Diagnosis: Abnormal LFTs, breast CA mets Activity: Resume your previous activity Non-emergency contact: Primary Care Provider Call non-emergency contact if: you have any medication questions Follow-up/Referrals: Veronica Mack CRNP [Primary Care Provider] - 05/16/21 2:50 pm (THIS APPOINTMENT WILL BE WITH CARYN NIETO) Diet: Regular Addtl Attending Provider Instructions: Recommend followup with Radiation Oncology on Wednesday05/09/21 at 12:30 Recommend followup with PCP in 1-2 weeks Recommend followup with Dr. Barros Recommend continuing antibiotics for 5 additIonal days due to elevated WBC. White blood count improved while you were here Pending Studies at Discharge: No Stand-Alone Forms: My [employer], Smoking Cessation Medications and DC Order Prescriptions: New amoxicillin-pot clavulanate [Augmentin] 875-125 mg tablet 1 tab PO BID Qty: 10 RF: 0 Continued levothyroxine 75 mcg capsule 75 mcg PO .QOD RF: 0 levothyroxine 100 mcg capsule 100 mcg PO .QOD RF: 0 ondansetron HCl [Zofran] 8 mg tablet 8 mg PO Q8 PRN (Reason: Nausea) RF: 0 Discharge Orders: Discharge Order (Routine); Ordered 05/09/21 Ordered By: Brian Stoner Admission Data Admit Date/Time: 05/07/21 20:37 Attending Provider: Brian Stoner Admit Provider: Fermin Ray Primary Care Provider: Veroncia Mack Other Providers: Fermin Ray ; Selvin Burton ; John Barros V. Other Interventions: Discharge Summary Assessment (RN) Last Done: 05/09/21 14:14 Coding Level of Care Code D/C DAY MANAGEMENT >30 MINS Diagnoses Liver metastasis C78.7 Metastatic breast cancer C50.919 Hypothyroidism (acquired) E03.9
== END 2021-05-09 14:42 | disposition home or self-care (01) | DRG 436 ==
LOC: ED 15:28 → 2W 20:37 → SUATTDRO 20:37 → 2W 22:50